=== PATIENT | male | born 1955 | race Caucasian/White ===

== ENCOUNTER 2023-03-17 13:55 | Outpatient (CLI) | payer OTHER, SELFPAY ==
--- NOTE | 2023-03-17 14:00 | CRLHL7_ITS ---
For Patients: As a result of the Century Cures Act, medical imaging exams and procedure reports are released immediately into your electronic medical record. You may view this report before your referring provider. If you have questions, please contact your health care provider. INDICATION: 67 year-old male. History of squamous cell carcinoma of the right tonsil. History of therapy not otherwise specified. Follow up. TECHNIQUE: 11.29 mCi 18 FDG (18 ilxzth-pk-rjx-glucose) injected intravenously. Imaging performed from the skull vertex through the mid thighs [address] performed for anatomic correlation and attenuation correction. Pre scan glucose: 81 mg/dL. COMPARISON: PET/CT scan July 09, 2021. Correlation is made with a contrast-enhanced neck CT report February 09, 2023. FINDINGS: Physiologic activity is identified in the brain, salivary glands, tongue, paralaryngeal soft tissues, myocardium, GI, and tract. Focal activity right antecubital fossa related to the radiotracer injection site. The intracranial structures are within normal limits. The soft tissues of the head and face are unremarkable. There is no evidence for metabolically active cervical lymphadenopathy. No abnormal activity in the thyroid gland. At the right tongue base there is a 5 mm focus of increased tracer uptake, image 72, with an SUV max of 6.4. When compared to the prior PET/CT scan there was a focus of activity near the right tongue base with an SUV max of 6.3. It is uncertain if today`s focus is in that same location. In fact today`s uptake appears to be slightly more inferior. Visual inspection along the posterolateral right tongue base is recommended. Residual or recurrent tumor is not excluded. Activity related to recent therapy could not be entirely excluded. The chest, abdomen, pelvis, both inguinal regions, soft tissues of the included size, and the included skeleton are within normal limits. CT Findings: 5 mm nodule along the inferolateral right tongue base. No cervical lymphadenopathy. Two adjacent calcified granulomas anterior right middle lobe of the lung. Calcified right hilar/mediastinal lymph nodes. No hydronephrosis or splenomegaly. Parapelvic and renal cortical cysts. 2 mm nonobstructing stone mid right kidney. Mild prostatic enlargement. Surgical clips in the superior aspect of each hemiscrotum. IMPRESSION: 1. 5 mm metabolically active nodule along the posterior lateral right tongue base, SUV max 6.4, previously 6.3. Visual inspection is warranted. Residual or recurrent tumor is in the differential. An inflammatory response to recent therapy could not be entirely excluded. 2. No evidence for metabolically active metastatic disease. 3. Benign granulomatous change right lung. Nonobstructing 2 mm stone right kidney. Dictated by Shabbir Jacobs MD @ 03/27/2023 3:55:56 PM (Electronically Signed)
== END 2023-03-17 13:56 | disposition home or self-care (01) ==
PROVIDERS: Visit Provider Otolaryngology
DX: C09.0 Malignant neoplasm of tonsillar fossa (principal)
CPT/HCPCS: 78815; A9552